=== PATIENT | female | born 2000 | race Caucasian/White ===

== ENCOUNTER 2019-04-10 22:41 | Outpatient (CLI) | payer MEDICAID ==
[2019-04-11 00:22] LABS: ADD UMIC YES; UR ASCORBIC ACID NEGATIVE (NEGATIVE); UR BILIRUBIN (Dip) NEGATIVE (NEGATIVE); UR BLOOD (Dip) NEGATIVE (NEGATIVE); UR CLARITY CLEAR (CLEAR); UR COLOR COLORLESS (YELLOW); UR GLUCOSE (Dip) NEGATIVE (NEGATIVE); UR KETONES (Dip) NEGATIVE (NEGATIVE); UR LEUKOCYTE ESTERASE (Dip) 1+ Leu/ul (NEGATIVE); UR NITRITE (Dip) NEGATIVE (NEGATIVE); UR RBC 0 /HPF (0-5); UR SPECIFIC GRAVITY (Dip) 1.002 (1.003-1.030); UR TOTAL PROTEIN (Dip) NEGATIVE (NEGATIVE); UR UROBILINOGEN (Dip) NEGATIVE (NEGATIVE); UR WBC 0 /HPF (0-5)
[2019-04-11] MEDS: TERBUTALINE 1 MG/ML INJ SC (00:30)
== END 2019-04-11 02:01 | disposition home or self-care (01) ==
LOC: OBT 22:41 → L-D 22:42
DX: O62.9 Abnormality of forces of labor, unspecified (principal); O23.43 Unspecified infection of urinary tract in pregnancy, third trimester; Z3A.31 31 weeks gestation of pregnancy; Z79.2 Long term (current) use of antibiotics
CPT/HCPCS: 76817; 76818; 81001